=== PATIENT | female | born 2000 | race Two or more races ===

== ENCOUNTER 2025-02-07 22:45 | Emergency (ER) | payer OTHER, MEDICAID ==
[~2025-02-07] VITALS: Ht 162.6 cm; Wt 63.6 kg
--- NOTE | 2025-02-08 00:32 | DVH ---
HISTORY: jaw pain TECHNIQUE: Nonenhanced axial images through the facial bones with coronal and sagittal MPR. Radiation Dose Information: CT Dose: CTDI volume is 66.97 mGy. Dose-length product is 1397.64 mGy*cm COMPARISON: None FINDINGS: Mandible: Moderate anterior subluxation of the left mandibular condyle with normal-appearing right temporomandibular joint articulation. Maxilla: Unremarkable Zygomatic arches: Unremarkable Nasal bone: Unremarkable Orbits: Unremarkable Sinuses: Bilateral maxillary and sphenoid mucosal sinus disease. The remaining paranasal sinuses are clear. Facial swelling: None IMPRESSION: 1. Moderate anterior subluxation of the left mandibular condyle with normal- appearing right temporomandibular joint articulation. Radiation optimization: All CT scans at this facility use at least one of these dose optimization techniques: automated exposure control mA and/or kV adjustment per patient size (includes targeted exams where dose is matched to clinical indication) or iterative reconstruction.
[2025-02-08 01:11] VITALS: TEMP 99
[2025-02-08] MEDS: KETAMINE 50mg/ML 1ml syringe IV ONE (01:36)
[2025-02-08] MEDS: ONDANSETRON HCL 4 MG/2 ML VIAL IV ONE (02:28)
[2025-02-08] MEDS ORDERED: IBUP-1454 PO (02:42)
[2025-02-08] MEDS ORDERED: CYCL-837 PO (02:42)
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
--- NOTE | 2025-02-08 03:13 | DVH ---
HISTORY: post reduction TECHNIQUE: Nonenhanced axial images through the facial bones with coronal and sagittal MPR. Radiation Dose Information: CT Dose: CTDI volume is 66.97 mGy. Dose-length product is 1380.37 mGy*cm COMPARISON: CT MAXILLOFACIAL WITHOUT on DOS: 02/07/25 FINDINGS: Mandible: Normal symmetric appearing bilateral temporomandibular joint articulation status post interval reduction of left TMJ. Maxilla: Unremarkable Zygomatic arches: Unremarkable Nasal bone: Unremarkable Orbits: Unremarkable Sinuses: Bilateral maxillary mucosal sinus disease. Facial swelling: None IMPRESSION: 1. Status post interval reduction of left TMJ. Radiation optimization: All CT scans at this facility use at least one of these dose optimization techniques: automated exposure control mA and/or kV adjustment per patient size (includes targeted exams where dose is matched to clinical indication) or iterative reconstruction.
[2025-02-08 04:00] VITALS: BP 123/79; PULSE 81; RESP 12; O2SAT 100
[2025-02-08] MEDS: MORPHINE SULFATE 4 MG/ML SYR/VIAL IV ONE (04:00)
== END 2025-02-08 04:11 | disposition home or self-care (01) ==
LOC: ER 22:45 → EDBD 22:45 → ER 02-08 04:11
DX: S03.02XA Dislocation of jaw, left side, initial encounter (principal); Y08.89XA Assault by other specified means, initial encounter; Y92.89 Other specified places as the place of occurrence of the external cause; Y93.61 Activity, american tackle football; Y99.8 Other external cause status
CPT/HCPCS: 21480; 70486; 96374; 99285; J2270; J2405